=== PATIENT | female | born 1960 | race Caucasian/White ===

== ENCOUNTER 2020-04-11 16:46 | Observation (INO) ==
[2020-04-11] MEDS ORDERED: ONDANSETRON INJ 2 MG/ML 2 ML VIAL IV STA (17:37)
[2020-04-11] MEDS ORDERED: SODIUM CHLORIDE 0.9% 1000ML 1,000 ML IV ONE ×2 (17:37→19:47)
[2020-04-11] MEDS ORDERED: KETOROLAC TROMETHAMINE 15 MG/ML VIAL IV ONE (17:37)
[2020-04-11] MEDS ORDERED: MoRPHine SULFATE 4 MG/ML 1 ML CARP\\VIAL IV STA (17:37)
--- NOTE | 2020-04-11 17:44 | Emergency Department Note ---
History of Present Illness General Chief complaint: Kidney Stone Stated complaint: kidney stone Time Seen by Provider: 04/11/20 17:25 Source: patient Mode of arrival: ambulatory Limitations: no limitations History of Present Illness Maximum Pain Intensity: 9 This patient is a 59-year-old female who presents to the emergency department for evaluation of left-sided flank pain. Patient states that she has been deali ng with a kidney stone for the past several weeks. She had imaging performed on March 29 which was ordered by her PCP and showed a left-sided UVJ stone. She states that her pain has not improved. She has had pain off and on. She had a virtual appointment with urology and they ordered an x-ray yesterday which showed that the stone had moved slightly. She states that her pain is worsened significantly today and she has vomited. She has been taking hydrocodone without relief of the pain. She has been taking Flomax. She states that her pain has been ongoing for at least 1 month in total. She rates her current discomfort a 9/10 and states the pain is in the left back and radiates into the left groin. Patient has a long history of stones and has needed them surgically removed in the past. Home Medications Home Medications Medication Instructions Recorded Confirmed Type hydrocodone-acetaminophen 1 tab PO Q6H PRN 04/11/20 04/11/20 History sertraline 100 mg PO DAILY 04/11/20 04/11/20 History tamsulosin 0.4 mg PO DAILY 04/11/20 04/11/20 History Allergies Allergy/AdvReac Type Severity Reaction Status Date / Time No Known Allergies Allergy Unverified 04/11/20 19:15 Past Med/Surg History Medical History Depression Kidney stones Social History Smoking Status: Never smoker Hx Alcohol Use: Yes Alcohol type: beer Hx Substance Use: No Preferred Language: Tristanian Communication Ability: Effective Supervisor Screen Making Required: No Beliefs That Will Affect Care: None Current Living Situation: Spouse Other Information That Helps Us Care for You: No Feels Safe at Home: Yes Safety Concerns: Feels Safe At This Time Review of Systems A total of 10 systems reviewed and were otherwise negative Physical Exam Vital Signs Vital Signs - 24 hr 04/11/20 17:04 04/11/20 18:07 04/11/20 18:30 Temperature 36.6 C Temperature Source Oral Pulse Rate 68 63 73 Pulse Rate [Bilateral Apical] Pulse Rate from SpO2 Sensor 64 75 Respiratory Rate 20 24 20 Blood Pressure 145/74 H Blood Pressure [Left Arm] Blood Pressure Mean 97 Blood Pressure Mean [Left Arm] Pulse Oximetry 98 100 99 Oxygen Delivery Method Room Air Room Air Sepsis Recent Fever Within 48 Hours No Sepsis New/Unexplained Change in Mental Status No Sepsis Action Taken by Nursing No Action Required 04/11/20 18:31 04/11/20 19:28 Temperature Temperature Source Pulse Rate 63 Pulse Rate [Bilateral Apical] 64 Pulse Rate from SpO2 Sensor 64 Respiratory Rate 22 18 Blood Pressure 157/86 H Blood Pressure [Left Arm] 113/79 Blood Pressure Mean 117 Blood Pressure Mean [Left Arm] 90 Pulse Oximetry 100 98 Oxygen Delivery Method Room Air Sepsis Recent Fever Within 48 Hours Sepsis New/Unexplained Change in Mental Status Sepsis Action Taken by Nursing VITALS: Vitals are noted on the nurse's note and reviewed by myself. GENERAL: This is a 59-year-old female, tearful, uncomfortable appearing, well- developed well-nourished. SKIN: The skin was without rashes, erythema, edema, or bruising. EYES: Pupils equal round and reactive to light and accommodation. MOUTH: Mucous membranes moist. Tonsils are not enlarged. NECK: Supple without nuchal rigidity. HEART: Regular rate and rhythm without murmurs gallops or rubs. LUNGS: Clear to auscultation bilaterally without wheezes, rales or rhonchi. ABDOMEN: Positive bowel sounds x 4. Soft, mild tenderness to palpation in the left lower quadrant. No CVA tenderness. No guarding or rebound tenderness. EXTREMITIES: No edema of the lower extremities. NEURO: Patient was alert and oriented to person place and time. Course Consultations Consultation #1: [facility]. [facility] Hospitalist Administered Medications Sodium Chloride (Nss 1000ml) 1,000 mls @ 200 mls/hr IV .Q5H ONE Stop: 04/12/20 00:46 Last Admin: 04/11/20 20:05 Dose: 200 mls/hr Documented by: [id number] Discontinued Medications Sodium Chloride (Nss 1000ml) 1,000 mls @ 999 mls/hr IV .Q1H1M ONE Stop: 04/11/20 18:37 Last Infusion: 08/18/20 19:29 Dose: 0 mls/hr Documented by: [id number] Admin: 04/11/20 18:00 Dose: 999 mls/hr Documented by: [id number] Ketorolac Tromethamine (Ketorolac Tromethamine 15 Mg/Ml Vial) 10 mg IV NOW ONE Stop: 04/11/20 17:38 Last Admin: 04/11/20 18:00 Dose: 10 mg Documented by: [id number] Morphine Sulfate (Morphine Sulfate 4 Mg/Ml 1 Ml Carp\Vial) 4 mg IV NOW STA Stop: 04/11/20 17:38 Last Admin: 04/11/20 18:00 Dose: 4 mg Documented by: [id number] Ondansetron HCl (Ondansetron Inj 2 Mg/Ml 2 Ml Vial) 4 mg IV NOW STA Stop: 04/11/20 17:38 Last Admin: 04/11/20 18:01 Dose: 4 mg Documented by: [id number] Medical Decision Making Differential Diagnosis Differential diagnosis includes renal calculus, pyelonephritis, musculoskeletal pain, ruptured AAA, aortic dissection, diverticulitis, perforated viscus, bowel obstruction, biliary pathology, pancreatitis, PE, pneumonia, pneumothorax, trau ma, herpes zoster, malignancy, among others. Medical Records Attestation: I reviewed the patient's medical records. Home Medications Current Medication List: was personally reviewed by me Laboratory Data Attestation: I reviewed the patient's lab results. Result diagrams: 04/11/20 17:45 04/11/20 17:45 Lab Results 04/11/20 04/11/20 04/11/20 Range/Units 17:45 17:45 17:45 WBC 7.39 (4.8-10.8) K/uL RBC 4.49 (4.2-5.4) M/uL Hgb 13.8 (12.0-16.0) g/dL Hct 40.1 (37-47) % MCV 89.3 (80-100) fL MCH 30.7 (25-34) pg MCHC 34.4 (32-36) g/dL RDW Std Deviation 44.2 (36.4-46.3) fL RDW Coeff of Saumya 13.5 (11.5-14.5) % Plt Count 177 (130-400) K/uL MPV 10.3 (7.4-10.4) fL Sodium 138 (136-145) mmol/L Potassium 4.0 (3.5-5.1) mmol/L Chloride 105 (98-107) mmol/L Carbon Dioxide 27 (21-32) mmol/L Anion Gap 6.0 (3-11) BUN 16 (7-18) mg/dl Creatinine 1.26 H (0.6-1.2) mg/dl Est Cr Clr Drug Dosing 44.1 ml/min Est GFR ( Amer) 53.3 Est GFR (Non-Af Amer) 45.9 BUN/Creatinine Ratio 12.8 (10-20) Glucose 105 H (70-99) mg/dl Calcium 8.9 (8.5-10.1) mg/dl Magnesium 2.0 (1.8-2.4) mg/dl Total Bilirubin 0.5 (0.2-1) mg/dl Direct Bilirubin 0.1 (0-0.2) mg/dl AST 18 (15-37) U/L ALT 22 (12-78) U/L Alkaline Phosphatase 95 (45-117) U/L Total Protein 7.1 (6.4-8.2) gm/dl Albumin 3.7 (3.4-5.0) gm/dl Imaging Data Attestation: I personally reviewed and interpreted this imaging study as follows: Radiologist's Impression: XR KUB/Abdomen 1 view CLINICAL HISTORY: left sided pain, kidney stone COMPARISON STUDY: 04/10/2020, renal ultrasound dated 04/11/2020 FINDINGS: There is moderate colonic stool. There is no pathologic bowel dilatation. There is a 4 mm calcification projected over the right kidney consistent with a calculus. There are nonspecific pelvic basin calcifications. IMPRESSION: 1. 4 mm right renal calculus 2. Nonspecific pelvic basin calcifications. In the setting of left flank pain, a distal left ureteral calculus cannot be excluded 3. No evidence of pathologic bowel dilatation EXAMINATION: RENAL ULTRASOUND CLINICAL HISTORY: left sided pain, kidney stone COMPARISON STUDY: X-ray study dated 04/11/2020 FINDINGS: The right kidney measures 11.2 cm. The left kidney measures 12.4 cm. There is left-sided hydronephrosis and hydroureter. There is a suspected 5 mm lower pole right renal calculus The right ureteral jet was visualized. There is an 8 mm calculus at the level the left ureterovesical junction. IMPRESSION : 1. 8 mm left UVJ calculus with secondary obstructive changes 2. Right-sided nephrolithiasis Blood Pressure Blood Pressure Findings: Normal blood pressure MDM Narrative The patient is a 59-year-old female who presents today complaining of persistent left-sided flank pain secondary to a kidney stone. Labs revealed no leukocy tosis. No evidence of UTI. Creatinine minimally elevated at 1.26. KUB and ultrasound were suggestive of a left UVJ stone. Patient has had this for multiple weeks and is having uncontrolled pain at home despite her pain medication. Patient is agreeable to admission for further care. [facility] agreed to evaluate the patient for further care. Impression & Plan Left ureteral stone, Hydronephrosis, left Discharge Plan Visit Data Chief Complaint: Kidney Stone Stated Complaint: kidney stone ED Provider: Gianfranco Steiner ED Midlevel Provider: Brittany Millan Discharge Problem: Left ureteral stone, Hydronephrosis, left Patient Disposition: Admitted As Inpatient Discharge Instructions Interventions: ED Discharge Assessment Last Done: 04/11/20 21:17
[2020-04-11 17:56] LABS: Hematocrit (blood only) 40.1 % (37-47); Hemoglobin 13.8 g/dL (12.0-16.0); Mean Corpuscular Hemoglobin 30.7 pg (25-34); Mean Corpuscular Hgb Conc 34.4 g/dL (32-36); Mean Corpuscular Volume 89.3 fL (80-100); Mean Platelet Volume 10.3 fL (7.4-10.4); Platelet Count 177 K/uL (130-400); RDW Coefficient of Variation 13.5 % (11.5-14.5); RDW Standard Deviation 44.2 fL (36.4-46.3); Red Blood Count 4.49 M/uL (4.2-5.4); White Blood Count 7.39 K/uL (4.8-10.8)
[2020-04-11 18:13] LABS: BUN Creatinine Ratio 12.8 (10-20); Calcium 8.9 mg/dl (8.5-10.1); Creatinine Clr Calc Pharmacy 44.1 ml/min; Est GFR (African American) 53.3; Est GFR (Non-African American) 45.9
--- NOTE | 2020-04-11 18:35 | XRay Report ---
XR KUB/Abdomen 1 view CLINICAL HISTORY: left sided pain, kidney stone COMPARISON STUDY: 04/10/2020, renal ultrasound dated 04/11/2020 FINDINGS: There is moderate colonic stool. There is no pathologic bowel dilatation. There is a 4 mm c alcification projected over the right kidney consistent with a calculus. There are nonspecific pelvic basin calcifications. IMPRESSION: 1. 4 mm right renal calculus 2. Nonspecific pelvic basin calcifications. In the setting of left flank pain, a distal left ureteral calculus cannot be excluded 3. No evidence of pathologic bowel dilatation ACT 112: Negative or not required by law. Electronically signed by: Les Diaz M.D. 04/11/2020 6:34 PM
--- NOTE | 2020-04-11 19:10 | Ultrasound Report ---
EXAMINATION: RENAL ULTRASOUND CLINICAL HISTORY: left sided pain, kidney stone COMPARISON STUDY: X-ray study dated 04/11/2020 FINDINGS: The right kidney measures 11.2 cm. The left kidney measures 12.4 cm. There is left-sided h ydronephrosis and hydroureter. There is a suspected 5 mm lower pole right renal calculus The right ureteral jet was visualized. There is an 8 mm calculus at the level the left ureterovesical junction. IMPRESSION : 1. 8 mm left UVJ calculus with secondary obstructive changes 2. Right-sided nephrolithiasis ACT 112: Negative or not required by law. Electronically signed by: Les Diaz M.D. 04/11/2020 7:09 PM
--- NOTE | 2020-04-11 19:44 | XRay Report ---
XR chest 1V portable CLINICAL HISTORY: renal failure COMPARISON STUDY: February 2013 FINDINGS: The cardiac and mediastinal contours are normal. There is slight vascular prominence withou t evidence of overt failure. There is mild bronchovascular crowding at the lung bases. There is no lo bar consolidation. There are no pleural effusions.[ IMPRESSION: AP portable study. No evidence of focal pulmonary consolidation. No evidence of overt jairo lure ACT 112: Negative or not required by law. Electronically signed by: Les Diaz M.D. 04/11/2020 7:43 PM
[2020-04-11 19:55] LABS: Albumin Level 3.7 gm/dl (3.4-5.0); Bilirubin Direct 0.1 mg/dl (0-0.2); Bilirubin,Total 0.5 mg/dl (0.2-1); Total Protein 7.1 gm/dl (6.4-8.2)
--- NOTE | 2020-04-11 20:06 | History & Physical Report ---
Date of Service April 11, 2020 Assessment & Plan (1) Obstructive uropathy: History recurrent kidney stones No sepsis for now ARF secondary to above mood disorder, stable GMF Analgesia Continue Flomax Baseline UA, monitor creatinine response to IVF Strain urine Urology consult Re: Obstructive uropathy N.p.o. after midnight in anticipation of urologic procedure in a.m. DVT prophylaxis. SCDs Full code Text document was generated using [employer] voice recognition software. It may contain grammatical or spelling errors. Kindly contact undersigned for clarification of any documentation item in question. History of Present Illness Chief Complaint: Worsening flank pain Primary Care Provider: Rebecca Mccain DO History obtained from patient and records. Medical history significant for mood disorder, urolithiasis, skin cancer as per records. 6 weeks ago, patient noted pelvic pressure symptoms associated with urinary f requency symptoms. Patient prescribed outpatient course of Bactrim and Macrobid for possible UTI. Macrobid Persistent symptoms on follow-up at PCPs office 3 weeks ago. Outpatient UA grew Gardnerella. Patient prescribed Flagyl outpatient. Outpatient urogynecology referral also made by PCPs office. Persistent symptoms later on associated with achy left flank pain reminiscent of kidney stone pain despite completion of Flagyl Rx noted 2 weeks ago.. Outpatient renal ultrasound last March 29 showed mild left hydronephrosis and mild to moderate dilated proximal and mid left ureter. Distal left ureter is not visualized. Distal ureteral obstruction possibly secondary to calculus is a consideration. CT would be helpful for further evaluation. CT abdomen pelvis later showed moderate left hydroureteronephrosis secondary to calculus left UVJ measuring 5 mm stone. Difficulty scheduling appointment with [facility]. Patient's chiropractor referred her to [facility] yesterday. Patient prescribed Vicodin and advised to take home Flomax by urology provider after telephone consultation. KUB, urine cultures requested. Patient advised to go to ER with worsening symptoms. Last night patient noted worsening achy left flank pain symptoms with nausea and emesis and some chills. No chest pain, no S OB. No gross hematuria. Patient consulted ER for worsening symptoms today. Medical History as above Surgical History : Appendectomy, urologic procedure Family History : Eye cancer Personal/Social history : Non-smoker, occasional EtOH intake, [employer] employee Allergies Allergy/AdvReac Type Severity Reaction Status Date / Time No Known Allergies Allergy Unverified 04/11/20 19:15 Home Medications Home Medications Medication Instructions Recorded Confirmed Type hydrocodone-acetaminophen 1 tab PO Q6H PRN 04/11/20 04/11/20 History sertraline 100 mg PO DAILY 04/11/20 04/11/20 History tamsulosin 0.4 mg PO DAILY 04/11/20 04/11/20 History Past Med/Surg History Medical History Depression Kidney stones Social History Smoking Status: Never smoker Feels Safe at Home: Yes Review of Systems Review of Systems: As per HPI, all 10 systems reviewed, all other ROS negative Physical Exam Physical Exam: GENERAL: Comfortable, pleasant, no respiratory distress SKIN: Normal color, warm HEENT: [place] palpebral conjunctivae, no ptosis, dry buccal mucosa NECK : Supple, no tenderness CHEST : CTA, no tenderness HEART : RRR, no obvious murmurs ABDOMEN: Some distention, nontender EXTREMITIES : No LE swelling/tenderness, no other conspicuous deformities noted NEUROLOGIC : Coherent, no facial asymmetry, no other gross focality Results & Data Results & [facility] ([facility]) Vital Signs (Past 12 Hours) Vital Signs Temp Pulse Pulse Resp BP BP Pulse Ox 04/11/20 19:28 64 18 113/79 98 04/11/20 18:31 63 22 157/86 H 100 04/11/20 18:30 73 20 99 04/11/20 18:07 63 24 100 04/11/20 17:04 36.6 C 68 20 145/74 H 98 Laboratory Results Laboratory Results WBC 7.39 K/uL (4.8-10.8) 04/11/20 17:45 RBC 4.49 M/uL (4.2-5.4) 04/11/20 17:45 Hgb 13.8 g/dL (12.0-16.0) 04/11/20 17:45 Hct 40.1 % (37-47) 04/11/20 17:45 MCV 89.3 fL (80-100) 04/11/20 17:45 MCH 30.7 pg (25-34) 04/11/20 17:45 MCHC 34.4 g/dL (32-36) 04/11/20 17:45 RDW Std Deviation 44.2 fL (36.4-46.3) 04/11/20 17:45 RDW Coeff of Saumya 13.5 % (11.5-14.5) 04/11/20 17:45 Plt Count 177 K/uL (130-400) 04/11/20 17:45 MPV 10.3 fL (7.4-10.4) 04/11/20 17:45 Sodium 138 mmol/L (136-145) 04/11/20 17:45 Potassium 4.0 mmol/L (3.5-5.1) 04/11/20 17:45 Chloride 105 mmol/L (98-107) 04/11/20 17:45 Carbon Dioxide 27 mmol/L (21-32) 04/11/20 17:45 Anion Gap 6.0 (3-11) 04/11/20 17:45 BUN 16 mg/dl (7-18) 04/11/20 17:45 Creatinine 1.26 mg/dl (0.6-1.2) H 04/11/20 17:45 Est Cr Clr Drug Dosing 44.1 ml/min 04/11/20 17:45 Est GFR ( Amer) 53.3 04/11/20 17:45 Est GFR (Non-Af Amer) 45.9 04/11/20 17:45 BUN/Creatinine Ratio 12.8 (10-20) 04/11/20 17:45 Glucose 105 mg/dl (70-99) H 04/11/20 17:45 Calcium 8.9 mg/dl (8.5-10.1) 04/11/20 17:45 Magnesium 2.0 mg/dl (1.8-2.4) 04/11/20 17:45 Total Bilirubin 0.5 mg/dl (0.2-1) 04/11/20 17:45 Direct Bilirubin 0.1 mg/dl (0-0.2) 04/11/20 17:45 AST 18 U/L (15-37) 04/11/20 17:45 ALT 22 U/L (12-78) 04/11/20 17:45 Alkaline Phosphatase 95 U/L (45-117) 04/11/20 17:45 Total Protein 7.1 gm/dl (6.4-8.2) 04/11/20 17:45 Albumin 3.7 gm/dl (3.4-5.0) 04/11/20 17:45 Diagnostic Findings KUB x-ray: 1. 4 mm right renal calculus 2. Nonspecific pelvic basin calcifications. In the setting of left flank pain, a distal left ureteral calculus cannot be excluded 3. No evidence of pathologic bowel dilatation Renal ultrasound: 1. 8 mm left UVJ calculus with secondary obstructive changes 2. Right-sided nephrolithiasis Chest x-ray: AP portable study. No evidence of focal pulmonary consolidation. No evidence of overt failure
[2020-04-11 20:45] LABS: Appearance Urine Clear (Clear); Bacteria Urine Automated Negative (Negative); Bilirubin Urine Negative (Negative); Blood Urine Trace (Negative); Cast Urine Automated 0 /lpf (0-5); Color Urine Yellow; Epithelial Cell Urine Auto 0-5 /lpf (0-5); Glucose Urine UA Negative (Negative); Ketones Urine 1+ (Negative); Leukocyte Esterase Urine Negative (Negative); Nitrite Urine Negative (Negative); Protein Urine Negative (Negative); RBC Urine Automated 0-4 /hpf (0-4); Specific Gravity Urine 1.008 (1.000-1.030); Urobilinogen Urine Negative (Negative); WBC Urine Automated 0 /hpf (0-5); pH Urine 7.5 (4.5-7.5)
[2020-04-11] MEDS ORDERED: HYDROmorphone INJ 0.5 MG/0.5 ML SYR IV PRN (21:40)
[2020-04-11] MEDS ORDERED: PROMETHAZINE HCL 12.5 MG in SODIUM CHLORIDE 0.9% 50 ML IV PRN (21:40)
[2020-04-11] MEDS ORDERED: ACETAMINOPHEN 325 MG TAB PO PRN (21:40)
[2020-04-11] MEDS ORDERED: OXYCODONE HCL IR 5 MG TAB (IMMEDIATE RELEASE) PO PRN (21:40)
[2020-04-12 00:13] LABS: Thyroid Stimulating Hormone 2.23 uIu/ml (0.300-4.500)
[2020-04-12] MEDS: SODIUM CHLORIDE 0.9% 1000ML 1,000 ML IV SCH ×2 (00:16→06:16)
[2020-04-12 05:21] LABS: Basophils # (auto) 0.01 K/uL (0-0.2); Basophils % (auto) 0.2 %; Hematocrit (blood only) 35.8 % (37-47); Hemoglobin 12.3 g/dL (12.0-16.0); Immature Granulocytes # (auto) 0.01 K/uL (0.00-0.02); Immature Granulocytes % (auto) 0.2 %; Lymphocytes # (auto) 1.37 K/uL (1.2-3.4); Lymphocytes % (auto) 27.7 %; Mean Corpuscular Hemoglobin 30.9 pg (25-34); Mean Corpuscular Hgb Conc 34.4 g/dL (32-36); Mean Corpuscular Volume 89.9 fL (80-100); Mean Platelet Volume 10.7 fL (7.4-10.4); Monocytes # (auto) 0.64 K/uL (0.11-0.59); Monocytes % (auto) 12.9 %; Neutrophils # (auto) 2.82 K/uL (1.4-6.5); Platelet Count 160 K/uL (130-400); RDW Coefficient of Variation 13.7 % (11.5-14.5); RDW Standard Deviation 45.3 fL (36.4-46.3); Red Blood Count 3.98 M/uL (4.2-5.4); White Blood Count 4.95 K/uL (4.8-10.8)
[2020-04-12 05:56] LABS: BUN Creatinine Ratio 15.8 (10-20); Calcium 7.8 mg/dl (8.5-10.1); Creatinine Clr Calc Pharmacy 65.2 ml/min; Est GFR (African American) 85.7; Potassium 4.1 mmol/L (3.5-5.1)
[2020-04-12] MEDS ORDERED: SERTRALINE HCL 100 MG TABLET PO SCH (09:00)
[2020-04-12] MEDS ORDERED: TAMSULOSIN HCL 0.4 MG CAP PO SCH (09:00)
--- NOTE | 2020-04-12 10:30 | Urology Consultation ---
Date of Consultation April 12, 2020 Assessment & Plan (1) Left ureteral stone: We will get a KUB assuming that the stone no longer appears present will discharge the patient will have the patient follow-up in 6 months with a KUB did discuss the fact that she may have a right stone and may be a candidate for lithotripsy sooner rather than later. Advised her to crease her fluid intake and her limit juice intake and decrease her salt intake History of Present Illness Reason for Consultation: Left ureteral stone Attending Physician: Storm Calzada MD History of Present Illness 59-year-old female who is had 6 weeks of intermittent left flank pain which became severe earlier this week she had a CT scan on March 29 that showed a 5 mm distal left ureteral stone. She presented to the emergency room yesterday with ongoing severe flank pain and was admitted after a sonogram and a KUB confirmed the persistence of the distal stone. She appeared to have passed a stone by this morning. Do not have access to the CAT scan to know whether she has other stones. KUB however does suggest a 4 mm renal stone on the right she did pass a stone 20 years ago. Patient currently not having pain. No longer having urinary urgency symptoms. Allergies Allergy/AdvReac Type Severity Reaction Status Date / Time No Known Allergies Allergy Unverified 04/11/20 19:15 Home Medications Home Medications Medication Instructions Recorded Confirmed Type hydrocodone-acetaminophen 1 tab PO Q6H PRN 04/11/20 04/11/20 History sertraline 100 mg PO DAILY 04/11/20 04/11/20 History tamsulosin 0.4 mg PO DAILY 04/11/20 04/11/20 History Patient History Medical History Depression Kidney stones Social History Smoking Status: Never smoker Hx Alcohol Use: Yes Alcohol type: beer Hx Substance Use: No Preferred Language: Lao Communication Ability: Effective Fur Buyer Required: No Beliefs That Will Affect Care: None Current Living Situation: Spouse Other Information That Helps Us Care for You: No Feels Safe at Home: Yes Safety Concerns: Feels Safe At This Time Review of Systems Review of Systems: All systems reviewed & are unremarkable except as noted in Subjective Please review admitting review of systems no changed Physical Exam Constitutional: well developed Eyes: PERRL, conjunctivae normal, anicteric sclerae ENMT: external ear and nose normal, oropharynx normal Neck: trachea midline, no thyromegaly Respiratory: normal respiratory effort Cardiovascular: Extremities: no edema Gastrointestinal (Abdomen): No flank pain to percussion Musculoskeletal: no cyanosis or clubbing, extremities motor strength 5/5 Skin: no rashes, warm and dry Neurologic: patellar DTR's 2+ bilat, sensation intact Psychiatric: A+Ox3, euthymic affect Lymphatic: no cervical or axillary lymphadenopathy Results & Data ([facility]) Vital Signs (Past 12 Hours) Vital Signs Temp Pulse Resp BP Pulse Ox 04/12/20 07:51 36.6 C 50 L 18 124/79 98 04/11/20 22:57 36.5 C 53 L 19 102/68 94 PG Care Time/CCT Total # of Minutes Spent Total Time Spent with Patient: Total time spent is greater than 50% in coordination of care (as documented) at patient's floor/unit and/or counseling patient: Coding Level of Care Code 28224 Inpt Consult Level 3 Diagnoses Left ureteral stone N20.1
--- NOTE | 2020-04-12 10:53 | XRay Report ---
KUB HISTORY: kidney stones COMPARISON: KUB 04/11/2020. FINDINGS: The bowel gas pattern is unremarkable. There are no dilated loops of small bowel to suggest an obstruction. Renal shadows are mostly obscured by overlying bowel gas. There is a 4 mm stone wit hin the lower pole the right kidney. No definite ureteral calculi. The 4 mm calcification within the left deep pelvis is no longer identified and may represent a passed ureteral stone. Additional calcif ications within the right deep pelvis remain stable and favor phleboliths. No pneumoperitoneum or pne umatosis. IMPRESSION: 1. Right-sided nephrolithiasis, unchanged. The left renal shadow is mostly obscured by overlying jay l gas. 2. The 4 mm calcification within the left deep pelvis is no longer identified and may represent a pas sed ureteral stone. ACT 112: Negative or not required by law. Electronically signed by: Ernesto Cardona M.D. 04/12/2020 10:52 AM
--- NOTE | 2020-04-12 12:37 | Hospitalist Progress Note ---
Date of Service April 12, 2020 Assessment & Plan (1) Obstructive uropathy: History recurrent kidney stones Noted to have 8 mm left UVJ calculus with secondary obstructive changes and right nephrolithiasis on ultrasound Did not have any sepsis on presentation Received intravenous fluid and adequate oral intake Passed stone this morning Appreciate neurology input and recommendation Repeat KUB did not show any evidence of stone and the patient remained asymptomatic We will discharge home this afternoon ARF Secondary to dehydration Kidney function normalized following IV fluid and increased oral intake History of mood disorder, Remains stable DVT prophylaxis. SCDs Full code We will discharge home this afternoon Admission and Anticipated Discharge Date Admission Date: April 11, 2020 Subjective 04/12/2020 The patient was seen and examined in medical floor She denies any symptoms as of this morning and she has passed the stone Denies any fever and/or chills, any abdominal pain, nausea and/or vomiting There is no hematuria Review of Systems Review of Systems: All systems reviewed and are unremarkable except as noted below Genitourinary: no urinary hesitancy, no hematuria and no pelvic pain Physical Exam Physical Exam: Lying in bed comfortably Constitutional: well developed and well nourished; no acute distress and not ill appearing Eyes: PERRL, conjunctivae normal, anicteric sclerae ENMT: external ear and nose normal, oropharynx normal Neck: trachea midline, no thyromegaly Respiratory: normal respiratory effort; no respiratory distress Auscultation: lungs clear to auscultation bilaterally Cardiovascular: Rate/Rhythm: regular rate and regular rhythm Heart Sounds: no murmur Gastrointestinal (Abdomen): Inspection/Auscultation: abdomen normal to inspection and normal bowel sounds; abdomen not distended Percussion/Palpation: abdomen soft; abdomen nontender Musculoskeletal: No acute arthritis involving any joints Neurologic: moves all extremities; no focal motor deficits Genitourinary: Denies any symptoms Results & Data Results & Data ([facility]) Vital Signs (Past 12 Hours) Vital Signs Temp Pulse Resp BP Pulse Ox 04/12/20 07:51 36.6 C 50 L 18 124/79 98 Laboratory Results Short CBC 04/11/20 04/12/20 Range/Units 17:45 04:57 WBC 7.39 4.95 (4.8-10.8) K/uL Hgb 13.8 12.3 (12.0-16.0) g/dL Hct 40.1 35.8 L (37-47) % Plt Count 177 160 (130-400) K/uL BMP 04/11/20 04/12/20 17:45 04:57 Sodium 138 144 Potassium 4.0 4.1 Chloride 105 116 H Carbon Dioxide 27 25 BUN 16 13 Creatinine 1.26 H 0.85 D Glucose 105 H 85 Calcium 8.9 7.8 L Liver Function 04/11/20 Range/Units 17:45 Total Bilirubin 0.5 (0.2-1) mg/dl Direct Bilirubin 0.1 (0-0.2) mg/dl AST 18 (15-37) U/L ALT 22 (12-78) U/L Alkaline Phosphatase 95 (45-117) U/L Albumin 3.7 (3.4-5.0) gm/dl Urine 04/11/20 Range/Units 20:30 Urine Color Yellow Urine Appearance Clear (Clear) Urine pH 7.5 (4.5-7.5) Ur Specific Graham 1.008 (1.000-1.030) Urine Protein Negative (Negative) Urine Glucose (UA) Negative (Negative) Medications Administered Current Inpatient Medications Acetaminophen (Acetaminophen 325 Mg Tab) 650 mg PO Q4H PRN PRN Reason: pain/fever Stop: 05/11/20 21:39 Hydromorphone HCl (Hydromorphone Inj 0.5 Mg/0.5 Ml Syr) 0.5 mg IV Q3H PRN PRN Reason: Pain Stop: 04/25/20 21:39 Promethazine HCl 12.5 mg/ (Sodium Chloride) 50.5 mls @ 202 mls/hr IV Q6H PRN PRN Reason: Nausea And Vomiting Stop: 05/11/20 21:39 Sodium Chloride (Nss 1000ml) 1,000 mls @ 150 mls/hr IV .Q6H40M BEBETO Stop: 05/12/20 00:00 Last Admin: 04/12/20 06:16 Dose: 150 mls/hr Documented by: Oxycodone HCl (Oxycodone Hcl Ir 5 Mg Tab (Immediate Release)) 5 - 10 mg PO Q4H PRN PRN Reason: Pain Stop: 04/25/20 21:39 Sertraline HCl (Sertraline Hcl 100 Mg Tablet) 100 mg PO DAILY BEBETO Stop: 05/12/20 08:59 Last Admin: 04/12/20 08:14 Dose: 100 mg Documented by: Tamsulosin HCl (Tamsulosin Hcl 0.4 Mg Cap) 0.4 mg PO DAILY BEBETO Stop: 05/12/20 08:59 Last Admin: 04/12/20 08:15 Dose: 0.4 mg Documented by:
--- NOTE | 2020-04-13 07:53 | Discharge Summary ---
Date of Service April 13, 2020 Admission HPI Per Admitting Provider History obtained from patient and records. Medical history significant for mood disorder, urolithiasis, skin cancer as per records. 6 weeks ago, patient noted pelvic pressure symptoms associated with urinary frequency symptoms. Patient prescribed outpatient course of Bactrim and Macrobid for possible UTI. Macrobid Persistent symptoms on follow-up at PCPs office 3 weeks ago. Outpatient UA grew Gardnerella. Patient prescribed Flagyl outpatient. Outpatient urogynecology referral also made by PCPs office. Persistent symptoms later on associated with achy left flank pain reminiscent of kidney stone pain despite completion of Flagyl Rx noted 2 weeks ago.. Outpatient renal ultrasound last March 29 showed mild left hydronephrosis and mild to moderate dilated proximal and mid left ureter. Distal left ureter is not visualized. Distal ureteral obstruction possibly secondary to calculus is a consideration. CT would be helpful for further evaluation. CT abdomen pelvis later showed moderate left hydroureteronephrosis secondary to calculus left UVJ measuring 5 mm stone. Difficulty scheduling appointment with [facility]. Patient's chiropractor referred her to [facility] yesterday. Patient prescribed Vicodin and advised to take home Flomax by urology provider after telephone consultation. KUB, urine cultures requested. Patient advised to go to ER with worsening symptoms. Last night patient noted worsening achy left flank pain symptoms with nausea and emesis and some chills. No chest pain, no S OB. No gross hematuria. Patient consulted ER for worsening symptoms today. Medical History as above Surgical History : Appendectomy, urologic procedure Family History : Eye cancer Personal/Social history : Non-smoker, occasional EtOH intake, [employer] employee Admission Exam Per Admitting Provider Physical Exam: GENERAL: Comfortable, pleasant, no respiratory distress SKIN: Normal color, warm HEENT: [place] palpebral conjunctivae, no ptosis, dry buccal mucosa NECK : Supple, no tenderness CHEST : CTA, no tenderness HEART : RRR, no obvious murmurs ABDOMEN: Some distention, nontender EXTREMITIES : No LE swelling/tenderness, no other conspicuous deformities noted NEUROLOGIC : Coherent, no facial asymmetry, no other gross focality Principal Diagnosis Left ureteral stone-passed out, may have right-sided stones-ongoing urology follow-up Discharge Exam Constitutional well developed and well nourished; no acute distress and not ill appearing Eyes PERRL, conjunctivae normal, anicteric sclerae ENMT external ear and nose normal, oropharynx normal Neck trachea midline, no thyromegaly Respiratory normal respiratory effort; no respiratory distress Auscultation: lungs clear to auscultation bilaterally Cardiovascular Rate/Rhythm: regular rate and regular rhythm Heart Sounds: no murmur Gastrointestinal (Abdomen) Inspection/Auscultation: abdomen normal to inspection and normal bowel sounds; abdomen not distended Percussion/Palpation: abdomen soft; abdomen nontender Neurologic moves all extremities; no focal motor deficits Discharge Data Allergies Allergy/AdvReac Type Severity Reaction Status Date / Time No Known Allergies Allergy Unverified 04/11/20 19:15 Consultations 04/11/20 19:33 ED Decision to Admit Stat 04/11/20 21:40 Consult Urology Routine Ordered Studies 04/11/20 17:37 US renal/blad retro comp Stat Hospital Course (1) Obstructive uropathy: History recurrent kidney stones Noted to have 8 mm left UVJ calculus with secondary obstructive changes and right nephrolithiasis on ultrasound Did not have any sepsis on presentation Received intravenous fluid and adequate oral intake Passed stone this morning Appreciate neurology input and recommendation Repeat KUB did not show any evidence of stone and the patient remained asymptomatic We will discharge home this afternoon ARF Secondary to dehydration Kidney function normalized following IV fluid and increased oral intake History of mood disorder, Remains stable DVT prophylaxis. SCDs Full code We will discharge home this afternoon Total Time Total Time Spent Total Time Spent (In Minutes): 35 minutes Total Time Includes: Examination of the Patient, Discharge Planning, Medication Reconciliation and Communication With Other Providers Discharge Plan Discharge Items Patient Disposition: Home - Self-Care Reason For Visit: OBSTRUCTIVE UROPATHY Discharge Diagnosis: Left ureteral stone-passed out, may have right-sided stones-ongoing urology follow-up Condition on Discharge: Good Activity: Resume your previous activity Non-emergency contact: Primary Care Provider Call non-emergency contact if: you have any medication questions and your symptoms worsen Follow-up/Referrals: Rebecca Mccain DO [Primary Care Provider] - 04/17/20 11:20 am (Date & Time 04/17/2020 11:20 AM Provider Carol Thomson DO Department [facility] ) Diet: Regular Addtl Attending Provider Instructions: Please drink plenty of fluid Pending Studies at Discharge: No Stand-Alone Forms: My [facility], Smoking Cessation Medications and DC Order Prescriptions: New tamsulosin 0.4 mg Capsule 0.4 mg PO DAILY 30 Days Qty: 30 RF: 0 Continued sertraline 100 mg tablet 100 mg PO DAILY RF: 0 tamsulosin 0.4 mg capsule 0.4 mg PO DAILY RF: 0 hydrocodone-acetaminophen 10-325 mg tablet 1 tab PO Q6H PRN (Reason: Pain) RF: 0 Discharge Orders: Discharge Order (Routine); Ordered 04/12/20 Ordered By: Storm Calzada Admission Data Admit Date/Time: 04/11/20 20:09 Attending Provider: Storm Calzada Admit Provider: Kameron Sage Primary Care Provider: Rebecca Mccain Other Providers: Kameron Sage ; Jacques Lima ; Saeid Loving ; Yvon Green I. ; Elvin Mantilla ; Marilu Sandoval ; Alana Washington ; Bakari Saenz ; Laney Lr Melissa A. ; Karthikeyan Mcgee ; Brandi Sykes Other Interventions: Discharge Summary Assessment (RN) Last Done: 04/12/20 12:53
[2020-04-16 14:10] LABS: Component 2 DNR; Source KIDNEY
== END 2020-04-12 13:13 | disposition home or self-care (01) ==
LOC: ED 16:46 → 3E 20:09 → INTOOBSV 20:09 → 3E 21:17